=== PATIENT | female | born 1935 | race Caucasian/White ===

== ENCOUNTER 2019-08-05 08:47 | Inpatient (IN) ==
[2019-08-05] MEDS ORDERED: ONDANSETRON INJ 2 MG/ML 2 ML VIAL IV STA (10:01)
[2019-08-05] MEDS ORDERED: LIDO/EPINEPHRINE/SOD BICARB 20 ML VIAL INFIL ONE (10:14)
[2019-08-05] MEDS ORDERED: SODIUM CHLORIDE 0.9% 500 ML IV SCH (10:15)
[2019-08-05 10:23] LABS: Basophils # (auto) 0.02 K/uL (0-0.2); Basophils % (auto) 0.2 %; Eosinophils # (auto) 0.01 K/uL (0-0.5); Eosinophils % (auto) 0.1 %; Hematocrit (blood only) 26.9 % (37-47); Hemoglobin 9.3 g/dL (12.0-16.0); Immature Granulocytes # (auto) 0.03 K/uL (0.00-0.02); Immature Granulocytes % (auto) 0.3 %; Lymphocytes # (auto) 1.14 K/uL (1.2-3.4); Lymphocytes % (auto) 10.2 %; Mean Corpuscular Hemoglobin 31.5 pg (25-34); Mean Corpuscular Hgb Conc 34.6 g/dL (32-36); Mean Corpuscular Volume 91.2 fL (80-100); Mean Platelet Volume 9.8 fL (7.4-10.4); Monocytes # (auto) 0.51 K/uL (0.11-0.59); Monocytes % (auto) 4.6 %; Neutrophils # (auto) 9.45 K/uL (1.4-6.5); Neutrophils % (auto) 84.6 %; Platelet Count 211 K/uL (130-400); RDW Coefficient of Variation 14.3 % (11.5-14.5); RDW Standard Deviation 47.7 fL (36.4-46.3); Red Blood Count 2.95 M/uL (4.2-5.4); White Blood Count 11.16 K/uL (4.8-10.8)
[2019-08-05 10:33] LABS: INR 1.1 (0.9-1.1); Prothrombin Time 11.4 Seconds (9.0-12.0)
[2019-08-05 10:41] LABS: Albumin Level 2.5 gm/dl (3.4-5.0); BUN Creatinine Ratio 14.8 (10-20); Calcium 8.3 mg/dl (8.5-10.1); Creatinine Clr Calc Pharmacy 28.4 ml/min; Est GFR (African American) 37.6; Est GFR (Non-African American) 32.5; Potassium 4.7 mmol/L (3.5-5.1)
[2019-08-05 10:57] LABS: Albumin Globulin Ratio 0.7 (0.9-2); Bilirubin,Total 0.2 mg/dl (0.2-1); Globulin 3.5 gm/dl (2.5-4.0); Thyroid Stimulating Hormone 8.72 uIu/ml (0.300-4.500); Troponin I 0.103 ng/ml (0-0.045)
--- NOTE | 2019-08-05 11:01 | CT Scan Report ---
CT OF THE HEAD WITHOUT CONTRAST CLINICAL HISTORY: fall, headache COMPARISON STUDY: No previous studies for comparison. CT DOSE: 998.18 mGy.cm TECHNIQUE: Helical axial images of the head were obtained without IV contrast. Automated exposure con trol was utilized for the study. A dose lowering technique was utilized adhering to the principles o f ALARA. FINDINGS: No acute intracranial hemorrhage, midline shift or mass effect is present. The ventricular system is unremarkable. The basilar cisterns are patent. Matter hypodensity suggests small vessel dis ease. No extra-axial collections are present. There are no findings to suggest acute dural sinus thro mbosis or acute territorial infarct. No significant calvarial abnormalities are present. Visualized p ortions of the sinuses and mastoid air cells are clear. IMPRESSION: 1. No acute intracranial findings. 2. No calvarial fracture. ACT 112: Negative or not required by law. Electronically signed by: Wicho Andrade M.D. 08/05/2019 11:00 AM
[2019-08-05 11:11] LABS: T4 Free Thyroxine 1.22 ng/dl (0.8-1.6)
--- NOTE | 2019-08-05 11:24 | XRay Report ---
XR chest 1V portable HISTORY: 84 years-old Female weakness acute weakness COMPARISON: None TECHNIQUE: Portable AP view of the chest FINDINGS: Cardiac silhouette is upper limits of normal in size. Calcified plaque of the thoracic aorta. Ill-def ined opacity of the right lung apex medially. Mild pleural thickening of the lung apices which are pa rtially obscured by the patient's chin. No pneumothorax, pleural effusion, airspace consolidation or overt pulmonary edema. Degenerative changes of the shoulders and spine. Bones appear grossly intact. IMPRESSION: 1. No acute process. 2. Indeterminate ill-defined opacity of the medial right lung apex, possibly artifactual with summati on density. This could be correlated with follow-up PA and lateral views of the chest. ACT 112: Negative or not required by law. The above report was generated using voice recognition software. It may contain grammatical, syntax o r spelling errors. Electronically signed by: Dwayne Anguiano M.D. 08/05/2019 11:22 AM
[2019-08-05] MEDS ORDERED: ACETAMINOPHEN 500 MG TAB PO STA (11:28)
[2019-08-05] MEDS ORDERED: ONDANSETRON 4 MG OD TAB PO STA (11:57)
--- NOTE | 2019-08-05 11:57 | History & Physical Report ---
Date of Service August 05, 2019 Assessment & Plan (1) Traumatic open wound of left lower lend to fall. s/p modified suture repair in ER by ER provider. Will have wound care nurse consult. In meantime - cont current dressings (vaseline guaze or adaptic followed by kerlix dressing). It is uncertain what she cut the leg on at her home - thus, will give TDaP booster (adacel) x 1. For pain relief -- tylenol prn, tramadol prn. (2) Fall: Patient does not remember the event and cannot provide historical information. Uncertain if the fall was precipitated by dizziness or arrhythmia vs a simple, accidental fall. She is volume depleted so she could have had orthostasis. No evidence of rhabdomyolysis fortunately. In light of PAF history will place on telemetry. Check echo to r/o valvular heart disease as cause (there is an echo from [facility] scanned to chart from 2019 but very difficult to read). PT, OT evals. B12 level was normal in 2019. Patient with mild hip pain - check x-rays, r/o fracture. (3) Hyponatremia: Patient appears volume depleted. NS x 2 liters then saline lock. Repeat BMP am. (4) Hypertension: Hold lasix. Hold ARB due to KATY and low-normal BP. Cont metoprolol but reduce dose to 25mg daily. (5) Paroxysmal atrial fibrillation: Noted. Patient is in NSR upon presentation. Takes eliquis for anticoagulation and is on beta ramez. Hold eliquis given the epistaxis yesterday as well as significant bleeding leading to acute blood loss anemia. Resume when safe to do so. For now - cut dose of metoprolol as noted above. Place on tele. (6) Chronic anticoagulation: eliquis for PAF. see discussion above. (7) Acute kidney injury: Likely 2nd to dehydration and acute blood loss anemia. Hydrate, repeat BMP in am. Hold ARB and lasix. (8) Traumatic open wound of right lower leg: Occurred 2-3 weeks ago. Is being followed by wound care center. Consult wound care nurse. Add vit C/zinc to assist with wound healing. (9) Elevated troponin: Doubt ACS. Likely myocardial demand ischemia in setting of fall, bleeding, etc. Obtain echo to be complete. Serial enzymes. (10) Acute blood loss anemia: Hemoglobin was 11.6 in 02/07. I don't have a more recent Hb value. [id number] I suspect she has 1-2 gm drop with her epistaxis and the bleeding from her left leg wound. Repeat CBC am. May need iron at discharge. (11) Elevated TSH: mildly elevated TSH with preserved FT4. Could consider replacement but will defer to PCP shortly after discharge. (12) DVT prophylaxis: hold eliquis for tonight (see discussion above) resume when H/H found to be stable and no evidence of any bleeding from any location daughter updated extensively at bedside History of Present Illness Chief Complaint: fall Primary Care Provider: Napoleon Lindsey MD 84yo female with h/o a.fib on eliquis who presents after a fall at her home in [place]. The patient's daughter was at bedside during my ER assessment and provided much of the historical information. Patient herself does not remember the fall. She couldn't give details surrounding the fall. The patient's daughter states they found her about 745am today in her bathroom. The family thinks she may have fallen about 2am. Family found blood on the floor in the kitchen as well as on her chair in the living room. Thus, they aren't certain where the actual fall occurred. There was a large wound to the left leg from this injury. Daughter reports that Mrs Engel was evaluated in the ER last night because of epistaxis. The nosebleed stopped without intervention. They did not get home until midnight last evening. Daughter mentioned that on most mornings her mom feels "foggy." Receives home health for a leg wound on the right leg. That has been present for 2 weeks. Daughter believes it was from scratching the skin. Followed in wound center for this right leg wound Over the last few days she has felt well except for the nosebleed. No loss of taste/smell, no fevers, no cough or dyspnea, no abdominal pain/nausea/emesis/diarrhea. No dysuria or foul-smelling urine. Allergies Allergy/AdvReac Type Severity Reaction Status Date / Time lisinopril AdvReac Mild Cough Verified 08/05/19 09:39 Home Medications Home Medications Medication Instructions Recorded Confirmed Type apixaban 5 mg tablet 5 mg PO BID 10/31/18 08/05/19 History aspirin 81 mg tablet,delayed 81 mg PO DAILY@1200 10/31/18 08/05/19 History release atorvastatin 20 mg tablet 20 mg PO HS 10/31/18 08/05/19 History cholecalciferol (vitamin D3) 125 5,000 units PO DAILY@1200 04/29/19 08/05/19 History mcg (5,000 unit) capsule coenzyme Q10 400 mg capsule 400 mg PO DAILY@1200 04/29/19 08/05/19 History multivitamin 1 tab PO DAILY@1200 04/29/19 08/05/19 History Wheelchair (Manual or Powered) #1 ea 05/01/19 Rx Wheelchair (Manual or Powered) #1 ea 05/05/19 05/05/19 Rx Wheelchair (Manual or Powered) #1 ea 05/06/19 Rx omega-3 fatty acids [Fish Oil 2,000 mg PO DAILY@1200 06/26/19 08/05/19 History Concentrate] famotidine [Pepcid] 40 mg PO QA 07/21/19 08/05/19 History losartan 50 mg PO HS 08/04/19 08/05/19 History furosemide [Lasix] 20 mg PO TID PRN 08/05/19 08/05/19 History metoprolol succinate 50 mg PO QAM 08/05/19 08/05/19 History tramadol 50 mg PO DAILY PRN 08/05/19 08/05/19 History Past Med/Surg History Medical History Atrial fibrillation Chronic anticoagulation Dyslipidemia Gait instability GERD (gastroesophageal reflux disease) Hypertension Mitral regurgitation Paroxysmal atrial fibrillation Surgical History H/O: hysterectomy Family History Mother Heart disease congestive heart failure Father Black lung disease Social History Preferred Language: Spanish Communication Ability: Effective Beliefs That Will Affect Care: None marital status: / Current Living Situation: Alone 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 occupational status: 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 Other Information That Helps Us Care for You: No other: 4 children; lives in [place] until 2019 Feels Safe at Home: Yes Safety Concerns: Feels Safe At This Time Smoking Status: Never smoker Hx Alcohol Use: No Hx Substance Use: No Review of Systems Constitutional: no fever, no chills, no anorexia and no weight loss Eyes: no worsening vision Ear, Nose, Mouth, Throat: no nasal congestion, no sore throat and no dysphagia Respiratory: no cough and no dyspnea Cardiovascular: no chest pain Gastrointestinal: + nausea (just in ER); no abdominal pain, no vomiting, no diarrhea/loose stools and no blood in stools Genitourinary: no dysuria Musculoskeletal: + joint pain (hips) Integumentary: + non-healing lesions Neurologic: no localized weakness and no loss of sensation Psychiatric: no depression and no anxiety Endocrine: no diabetes Hematologic / Lymphatic: + easy bruising Physical Exam Constitutional: + frail appearing; no acute distress and no altered mental status (but was sleepy ) Eyes: PERRL ENMT: Ears: no TM abnormality Nose: + turbinate abnormality (dried blood right nare) Mouth: + dry oral mucous membranes Neck: trachea midline, no thyromegaly Respiratory: normal respiratory effort, lungs clear to auscultation Cardiovascular: Rate/Rhythm: regular rate and regular rhythm Heart Sounds: normal S1, normal S2 and + murmur (2/6 JAMAL RUSB and apex ) Vessels: posterior tibial pulses present and dorsalis pedis pulses present; no JVD Extremities: no edema Gastrointestinal (Abdomen): normal bowel sounds, soft, nontender, no hepatosplenomegaly Musculoskeletal: passive ROM of both hips causes pain in left hip region; no deformity of either leg; dressings in place to b/l LEs Skin: dried blood on bottoms of feet; b/l shins - mild venous stasis changes; skin is very thin. Well-healed ulceration, distal medial right mathews, with no surrounding cellulitis or drainage. left distal medial amthews -- large open laceration, ellipse in shape and vertical in orientation, about 2 to 2.5 inches in length; 2 sutures present at top-portion of wound and 2 sutures present at bottom. There is 2-3mm of opening between the wound edges. There is surrounding bruising and evidence of significant trauma. Neurologic: deep tendon reflexes 2+ bilaterally and moves all extremities; no focal motor deficits Psychiatric: Orientation: alert (but sleepy at times ), oriented to person and oriented to place Lymphatic: no cervical lymphadenopathy Results & Data Results & Data ([facility]) Vital Signs (Past 12 Hours) Vital Signs Temp Pulse Pulse Resp BP BP Pulse Ox 08/05/19 11:03 80 18 115/66 100 08/05/19 10:13 77 16 117/54 L 98 08/05/19 10:12 98 08/05/19 09:08 36.2 C L 74 18 122/61 96 Laboratory Results Laboratory Results - last 24 hr 08/05/19 08/05/19 08/05/19 10:10 10:10 10:10 WBC 11.16 H RBC 2.95 L Hgb 9.3 L Hct 26.9 L MCV 91.2 MCH 31.5 MCHC 34.6 RDW Std Deviation 47.7 H RDW Coeff of Marcel 14.3 Plt Count 211 MPV 9.8 Immature Gran % (Auto) 0.3 Neut % (Auto) 84.6 Lymph % (Auto) 10.2 [place] % (Auto) 4.6 Eos % (Auto) 0.1 Baso % (Auto) 0.2 Immature Gran # (Auto) 0.03 H Neut # (Auto) 9.45 H Lymph # (Auto) 1.14 L [place] # (Auto) 0.51 Eos # (Auto) 0.01 Baso # (Auto) 0.02 PT 11.4 INR 1.1 Sodium 131 L Potassium 4.7 Chloride 98 Carbon Dioxide 23 Anion Gap 10.0 BUN 22 H Creatinine 1.46 H Est Cr Clr Drug Dosing 28.4 Est GFR ( Amer) 37.6 Est GFR (Non-Af Amer) 32.5 BUN/Creatinine Ratio 14.8 Glucose 183 H Calcium 8.3 L Magnesium Total Bilirubin 0.2 AST 16 ALT 16 Alkaline Phosphatase 144 H Total Creatine Kinase 62 Troponin I 0.103 H* Total Protein 6.0 L Albumin 2.5 L Globulin 3.5 Albumin/Globulin Ratio 0.7 L TSH 8.720 H Free T4 1.22 08/05/19 08/05/19 10:10 16:01 WBC RBC Hgb Hct MCV MCH MCHC RDW Std Deviation RDW Coeff of Marcel Plt Count MPV Immature Gran % (Auto) Neut % (Auto) Lymph % (Auto) [place] % (Auto) Eos % (Auto) Baso % (Auto) Immature Gran # (Auto) Neut # (Auto) Lymph # (Auto) [place] # (Auto) Eos # (Auto) Baso # (Auto) PT INR Sodium Potassium Chloride Carbon Dioxide Anion Gap BUN Creatinine Est Cr Clr Drug Dosing Est GFR ( Amer) Est GFR (Non-Af Amer) BUN/Creatinine Ratio Glucose Calcium Magnesium 2.0 Total Bilirubin AST ALT Alkaline Phosphatase Total Creatine Kinase Troponin I 0.146 H* Total Protein Albumin Globulin Albumin/Globulin Ratio TSH Free T4 Diagnostic Findings EKG - my reading - NSR, no ST changes cxr - ?RUL infiltrate vs summation CT head - no ICH, no acute process Code Status & VTE Plan Code Status DNR/DNI VTE Prophylaxis Plan VTE Prophylaxis will be ordered: Yes PG Care Time/CCT Total # of Minutes Spent Total Time Spent with Patient: Total time spent is greater than 50% in coordination of care (as documented) at patient's floor/unit and/or counseling patient: Coding Level of Care Code 27221 Initial Inpt Care Lvl 3 Diagnoses Traumatic open wound of left lower leg S81.802A Encounter type: initial encounter Fall W19.XXXA Encounter type: initial encounter Hyponatremia E87.1 Hypertension I10 Hypertension type: essential hypertension Paroxysmal atrial fibrillation I48.0 Chronic anticoagulation Z79.01 Acute kidney injury N17.9 Traumatic open wound of right lower leg S81.801S Encounter type: sequela Elevated troponin R79.89 Acute blood loss anemia D62 Elevated TSH R79.89 DVT prophylaxis Z29.9 (1) Traumatic open wound of right lower leg Encounter type: sequela Qualified Code(s): S81.801S - Unspecified open wound, right lower leg, sequela (2) Traumatic open wound of left lower leg Encounter type: initial encounter Qualified Code(s): S81.802A - Unspecified open wound, left lower leg, initial encounter (3) Hypertension Hypertension type: essential hypertension Qualified Code(s): I10 - Essential (primary) hypertension (4) Fall Encounter type: initial encounter Qualified Code(s): W19.XXXA - Unspecified fall, initial encounter
[2019-08-05] MEDS ORDERED: DIPHTHERIA/TETANUS/PERTUSSIS 0.5 ML SYR/VIAL IM ONE (12:33)
--- NOTE | 2019-08-05 12:37 | Electrocardiogram Report ---
Test Reason : Blood Pressure : / mmHG Vent. Rate : 072 BPM Atrial Rate : 072 BPM P-R Int : 158 ms QRS Dur : 084 ms QT Int : 402 ms P-R-T Axes : 039 009 054 degrees QTc Int : 440 ms Sinus rhythm with marked sinus arrhythmia Nonspecific ST abnormality Abnormal ECG No previous ECGs available Confirmed by Carlos Collier ([id number]) on 08/05/2019 12:36:45 PM Referred By: REFERRED SELF Confirmed By:Alvaro Collier
--- NOTE | 2019-08-05 13:03 | XRay Report ---
PELVIS 2 VIEWS CLINICAL HISTORY: Fall. Bilateral hip pain. FINDINGS: AP and frog-leg views of the pelvis are obtained. No prior studies are available for compar isma at the time of dictation. The skeletal structures are osteopenic. There is no radiographic evide nce of fracture involving the hips or bony pelvis. Moderate degenerative joint space narrowing is pre sent in the hips. Degenerative sclerosis is noted in the sacroiliac joints. Mild lumbosacral spondylo sis is partially visualized. Phleboliths are observed in the pelvis. There is no bowel obstruction. T he overlying soft tissues are normal as imaged. IMPRESSION: No acute bony abnormality is identified. Electronically signed by: Bry Foster M.D. 08/05/2019 1:02 PM
[2019-08-05] MEDS ORDERED: ONDANSETRON INJ 2 MG/ML 2 ML VIAL IV PRN (14:15)
[2019-08-05] MEDS: SODIUM CHLORIDE 0.9% 1000ML 1,000 ML IV SCH (14:50)
--- NOTE | 2019-08-05 15:41 | Emergency Department Note ---
History of Present Illness General Chief complaint: Fall Stated complaint: GLF 2AM Leg Lac Time Seen by Provider: 08/05/19 09:16 Source: patient History of Present Illness Provider complaint: Fall Maximum Pain Intensity: 8 This is a 84-year-old female who presents to the ED with a chief complaint of a fall. She was seen here last night for nosebleed. The patient fell around 2 AM and was on the floor until about 8 AM when the family found her. She states that she feels groggy and has a slight headache and a little nausea. She has so me generalized fatigue and weakness. She is on Eliquis for A. fib. The patient has no other additional complaints at this time. Denies any chest pains or abdominal pains. No vomiting or fevers. She does complain of a wound to the left leg from her injury. Her family states that there was a lot of blood on the floor. Home Medications Home Medications Medication Instructions Recorded Confirmed Type apixaban 5 mg tablet 5 mg PO BID 10/31/18 08/05/19 History aspirin 81 mg tablet,delayed 81 mg PO DAILY@119910/31/18 08/05/19 History release atorvastatin 20 mg tablet 20 mg PO HS 10/31/18 08/05/19 History cholecalciferol (vitamin D3) 125 5,000 units PO DAILY@119904/29/19 08/05/19 History mcg (5,000 unit) capsule coenzyme Q10 400 mg capsule 400 mg PO DAILY@119904/29/19 08/05/19 History multivitamin 1 tab PO DAILY@119904/29/19 08/05/19 History Wheelchair (Manual or Powered) #1 ea 05/01/19 Rx Wheelchair (Manual or Powered) #1 ea 05/05/19 05/05/19 Rx Wheelchair (Manual or Powered) #1 ea 05/06/19 Rx omega-3 fatty acids [Fish Oil 2,000 mg PO DAILY@119906/26/19 08/05/19 History Concentrate] famotidine [Pepcid] 40 mg PO QAM 07/21/19 08/05/19 History losartan 50 mg PO HS 08/04/19 08/05/19 History furosemide [Lasix] 20 mg PO TID PRN 08/05/19 08/05/19 History metoprolol succinate 50 mg PO QAM 08/05/19 08/05/19 History tramadol 50 mg PO DAILY PRN 08/05/19 08/05/19 History Allergies Allergy/AdvReac Type Severity Reaction Status Date / Time lisinopril AdvReac Mild Cough Verified 08/05/19 09:39 Past Med/Surg History Medical History Atrial fibrillation Chronic anticoagulation Dyslipidemia Gait instability GERD (gastroesophageal reflux disease) Hypertension Mitral regurgitation Paroxysmal atrial fibrillation Surgical History H/O: hysterectomy Family History Mother Heart disease congestive heart failure Father Black lung disease Social History Preferred Language: Scottish Communication Ability: Effective Beliefs That Will Affect Care: None marital status: / Current Living Situation: Alone 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 occupational status: 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 Other Information That Helps Us Care for You: No other: 4 children; lives in [place] until 2019 Feels Safe at Home: Yes Safety Concerns: Feels Safe At This Time Smoking Status: Never smoker Hx Alcohol Use: No Hx Substance Use: No Review of Systems A total of 10 systems reviewed and were otherwise negative Physical Exam Vital Signs Vital Signs - 24 hr 08/05/19 09:08 08/05/19 10:12 08/05/19 10:13 Temperature 36.2 C L Temperature Source Rectal Pulse Rate 74 Pulse Rate [Left Finger] 77 Pulse Rate from SpO2 Sensor Respiratory Rate 18 16 Blood Pressure 122/61 Blood Pressure [Left Arm] 117/54 L Blood Pressure Mean 81 Blood Pressure Mean [Left Arm] 75 Pulse Oximetry 96 98 98 Oxygen Delivery Method Room Air Room Air Room Air Sepsis Recent Fever Within 48 Hours No Sepsis New/Unexplained Change in Mental Status No Sepsis Action Taken by Nursing No Action Required 08/05/19 11:03 08/05/19 11:30 08/05/19 12:01 Temperature Temperature Source Pulse Rate 77 75 74 Pulse Rate [Left Finger] 80 Pulse Rate from SpO2 Sensor 78 76 72 Respiratory Rate 18 20 22 Blood Pressure 115/66 101/60 99/53 L Blood Pressure [Left Arm] 115/66 Blood Pressure Mean 93 82 79 Blood Pressure Mean [Left Arm] 82 Pulse Oximetry 100 98 98 Oxygen Delivery Method Room Air Sepsis Recent Fever Within 48 Hours Sepsis New/Unexplained Change in Mental Status Sepsis Action Taken by Nursing 08/05/19 12:30 Temperature Temperature Source Pulse Rate 85 Pulse Rate [Left Finger] Pulse Rate from SpO2 Sensor Respiratory Rate 31 H Blood Pressure 120/66 Blood Pressure [Left Arm] Blood Pressure Mean 89 Blood Pressure Mean [Left Arm] Pulse Oximetry Oxygen Delivery Method Sepsis Recent Fever Within 48 Hours Sepsis New/Unexplained Change in Mental Status Sepsis Action Taken by Nursing CONSTITUTIONAL/VITAL SIGNS: Reviewed / noted above. GENERAL: Non-toxic in appearance. INTEGUMENTARY: Warm, dry, and [place]. HEAD: Normocephalic. EYES: without scleral icterus or trauma. ENT/OROPHARYNX: clear and moist. LYMPHADENOPATHY/NECK: Is supple without lymphadenopathy or meningismus. RESPIRATORY: Lungs clear and equal. CARDIOVASCULAR: Regular rate and rhythm. GI/ABDOMEN: Soft and nontender. No organomegaly or pulsatile mass. No rebound or guarding. Normal bowel sounds. EXTREMITIES: Warm and well perfused. 16 cm laceration the left calf region that is flap-like skin tear. Please see Nallely Cuadra's, physician operator assistant i cementing note for details on the repair. BACK: No CVA tenderness. NEUROLOGICAL: Intact without focal deficits. PSYCHIATRIC: normal affect. MUSCULOSKELETAL: Normally developed with good muscle tone. TRIAGE NURSING DOCUMENTATION REVIEWED. Course Administered Medications Sodium Chloride (Nss 1000ml) 1,000 mls @ 75 mls/hr IV .[id number] [facility] Stop: 08/06/19 15:12 Last Admin: 08/05/19 14:50 Dose: 75 mls/hr Documented by: [id number] Discontinued Medications Acetaminophen (Tylenol) 500 mg PO NOW STA Stop: 08/05/19 11:29 Last Admin: 08/05/19 11:59 Dose: 500 mg Documented by: [id number] Diphtheria/Pertussis/Tetanus Vacc (Adacel) 0.5 ml IM .ONCE ONE Stop: 08/05/19 12:34 Last Admin: 08/05/19 13:37 Dose: 0.5 ml Documented by: [id number] Sodium Chloride (Nss) 500 mls @ 999 mls/hr IV .Q31M [facility] Stop: 08/05/19 10:45 Last Infusion: 08/05/19 10:51 Dose: 0 mls/hr Documented by: [id number] Admin: 08/05/19 10:19 Dose: 999 mls/hr Documented by: [id number] Lidocaine/Epinephrine (Buffered Xylocaine/Epinephrine 1%) 20 ml INFIL NOW ONE Stop: 08/05/19 10:15 Last Admin: 08/05/19 10:20 Dose: 20 ml Documented by: [id number] Ondansetron HCl (Zofran) 4 mg IV NOW STA Stop: 08/05/19 10:02 Last Admin: 08/05/19 10:19 Dose: 4 mg Documented by: [id number] Ondansetron HCl (Zofran Odt) 4 mg PO NOW STA Stop: 08/05/19 11:58 Last Admin: 08/05/19 12:05 Dose: 4 mg Documented by: [id number] Medical Decision Making Medical Records Attestation: I reviewed the patient's medical records. Home Medications Current Medication List: was personally reviewed by me Laboratory Data Attestation: I reviewed the patient's lab results. Result diagrams: 08/05/19 10:10 08/05/19 10:10 Lab Results 08/05/19 08/05/19 08/05/19 Range/Units 10:10 10:10 10:10 WBC 11.16 H (4.8-10.8) K/uL RBC 2.95 L (4.2-5.4) M/uL Hgb 9.3 L (12.0-16.0) g/dL Hct 26.9 L (37-47) % MCV 91.2 (80-100) fL MCH 31.5 (25-34) pg MCHC 34.6 (32-36) g/dL RDW Std Deviation 47.7 H (36.4-46.3) fL RDW Coeff of Marcel 14.3 (11.5-14.5) % Plt Count 211 (130-400) K/uL MPV 9.8 (7.4-10.4) fL Immature Gran % (Auto) 0.3 % Neut % (Auto) 84.6 % Lymph % (Auto) 10.2 % Sabine % (Auto) 4.6 % Eos % (Auto) 0.1 % Baso % (Auto) 0.2 % Immature Gran # (Auto) 0.03 H (0.00-0.02) K/uL Neut # (Auto) 9.45 H (1.4-6.5) K/uL Lymph # (Auto) 1.14 L (1.2-3.4) K/uL Sabine # (Auto) 0.51 (0.11-0.59) K/uL Eos # (Auto) 0.01 (0-0.5) K/uL Baso # (Auto) 0.02 (0-0.2) K/uL PT 11.4 (9.0-12.0) Seconds INR 1.1 (0.9-1.1) Sodium 131 L (136-145) mmol/L Potassium 4.7 (3.5-5.1) mmol/L Chloride 98 (98-107) mmol/L Carbon Dioxide 23 (21-32) mmol/L Anion Gap 10.0 (3-11) BUN 22 H (7-18) mg/dl Creatinine 1.46 H (0.6-1.2) mg/dl Est Cr Clr Drug Dosing 28.4 ml/min Est GFR ( Amer) 37.6 Est GFR (Non-Af Amer) 32.5 BUN/Creatinine Ratio 14.8 (10-20) Glucose 183 H (70-99) mg/dl Calcium 8.3 L (8.5-10.1) mg/dl Magnesium (1.8-2.4) mg/dl Total Bilirubin 0.2 (0.2-1) mg/dl AST 16 (15-37) U/L ALT 16 (12-78) U/L Alkaline Phosphatase 144 H (45-117) U/L Total Creatine Kinase 62 (26-192) U/L Troponin I 0.103 H* (0-0.045) ng/ml Total Protein 6.0 L (6.4-8.2) gm/dl Albumin 2.5 L (3.4-5.0) gm/dl Globulin 3.5 (2.5-4.0) gm/dl Albumin/Globulin Ratio 0.7 L (0.9-2) TSH 8.720 H (0.300-4.500) uIu/ml Free T4 1.22 (0.8-1.6) ng/dl 08/05/19 Range/Units 10:10 WBC (4.8-10.8) K/uL RBC (4.2-5.4) M/uL Hgb (12.0-16.0) g/dL Hct (37-47) % MCV (80-100) fL MCH (25-34) pg MCHC (32-36) g/dL RDW Std Deviation (36.4-46.3) fL RDW Coeff of Marcel (11.5-14.5) % Plt Count (130-400) K/uL MPV (7.4-10.4) fL Immature Gran % (Auto) % Neut % (Auto) % Lymph % (Auto) % Sabine % (Auto) % Eos % (Auto) % Baso % (Auto) % Immature Gran # (Auto) (0.00-0.02) K/uL Neut # (Auto) (1.4-6.5) K/uL Lymph # (Auto) (1.2-3.4) K/uL Sabine # (Auto) (0.11-0.59) K/uL Eos # (Auto) (0-0.5) K/uL Baso # (Auto) (0-0.2) K/uL PT (9.0-12.0) Seconds INR (0.9-1.1) Sodium (136-145) mmol/L Potassium (3.5-5.1) mmol/L Chloride (98-107) mmol/L Carbon Dioxide (21-32) mmol/L Anion Gap (3-11) BUN (7-18) mg/dl Creatinine (0.6-1.2) mg/dl Est Cr Clr Drug Dosing ml/min Est GFR ( Amer) Est GFR (Non-Af Amer) BUN/Creatinine Ratio (10-20) Glucose (70-99) mg/dl Calcium (8.5-10.1) mg/dl Magnesium 2.0 (1.8-2.4) mg/dl Total Bilirubin (0.2-1) mg/dl AST (15-37) U/L ALT (12-78) U/L Alkaline Phosphatase (45-117) U/L Total Creatine Kinase (26-192) U/L Troponin I (0-0.045) ng/ml Total Protein (6.4-8.2) gm/dl Albumin (3.4-5.0) gm/dl Globulin (2.5-4.0) gm/dl Albumin/Globulin Ratio (0.9-2) TSH (0.300-4.500) uIu/ml Free T4 (0.8-1.6) ng/dl Imaging Data Radiologist's Impression: Chest x-ray: IMPRESSION: 1. No acute process. 2. Indeterminate ill-defined opacity of the medial right lung apex, possibly artifactual with summation density. This could be correlated with follow-up PA and lateral views of the chest. CT scan of the brain: IMPRESSION: 1. No acute intracranial findings. 2. No calvarial fracture. X-ray of the pelvis/hip IMPRESSION: No acute bony abnormality is identified. ECG Data Attestation: I personally reviewed and interpreted this ECG as follows: Indication: + weakness Rate (beats per minute): 72 Rhythm: + sinus rhythm ECG Intervals/blocks: + Normal QT-c ECG ST segments: no ST elevation ECG Findings: no PVCs Blood Pressure Blood Pressure Findings: Normal blood pressure Head Trauma GCS Score: 15 MDM Narrative The patient presents as above after a fall. She was on the ground for possibly 6 hours. Her total CK was normal. She did suffer a large laceration/skin tear to the left calf region that was approximated as best possible by Nallely Chau PA-C. The patient exam was otherwise unremarkable for any serious injury. A CT scan of the brain did not show acute process. Twelve-lead EKG shows a normal sinus rhythm. Troponin was slightly elevated. CBC and chemistry panel was unremarkable. The patient and family were told the results of the test. She will be seen by the hospitalist for further inpatient evaluation and care for her elevated troponin. She is currently not having any chest pain and her EKG did not show any acute ischemic changes. Other imaging studies are noted above. Chest x-ray did not show acute process. X-ray of the pelvis/hip was unremarkable. Impression & Plan Fall, Noninfected skin tear of left leg, Generalized weakness, Elevated t roponin Discharge Plan Visit Data *Final* Discharge Date/Time: 08/05/19 13:46 Chief Complaint: Fall Stated Complaint: GLF 2AM Leg Lac ED Provider: Amrik Recinos Discharge Problem: Fall, Noninfected skin tear of left leg, Generalized weakness, Elevated troponin Patient Disposition: Admitted As Inpatient Discharge Instructions Interventions: ED Discharge Assessment Last Done: 06/15/20 13:46 Discharge Problem: Fall Qualifiers: Encounter type: initial encounter Qualified Code(s): W19.XXXA - Unspecified fall, initial encounter Noninfected skin tear of left leg Qualifiers: Encounter type: initial encounter Qualified Code(s): S81.812A - Laceration without foreign body, left lower leg, initial encounter
[2019-08-05] MEDS: ACETAMINOPHEN 325 MG TAB PO PRN (16:45)
[2019-08-05] MEDS: ATORVASTATIN 20 MG TAB PO SCH (20:23)
--- NOTE | 2019-08-05 20:24 | Emergency Department Note ---
ED Visit Note EMERGENCY DEPARTMENT PROCEDURE NOTE: I was asked by Dr. Recinos to evaluate and treat the large skin tear on the left medial calf of this 84-year-old female patient. Please refer to their dictation for the complete history, physical exam, and ED course. EMERGENCY DEPARTMENT COURSE: The wound cleansed with saline, and anesthetized with 20 cc of 1% buffered lidocaine with epinephrine to facilitate exam and care. The patient has an L-shaped skin tear that measured 16 cm in length. There was significant swelling and retraction of the flap, and despite evacuation of the hematoma, the skin could not be reapproximated. The flap was very thin and friable. I did attempt to place sutures to reapproximate the skin flap, I was only able to get 4, 4-0 nylon sutures in the more proximal and distal portion of the wound, the distance to overcome in the middle was too great and sutures were pulling out of the flap. The area is not amenable to Dermabond or Steri-Strips. The area was then cleansed again with saline solution and dressed with Adaptic, 4 x 4's, ABD and a light dressing. Patient is established with the wound care center, she will be seeing them later this week. They can address the new left lower extremity skin tear at that time. . : Fall Qualifiers: Encounter type: initial encounter Qualified Code(s): W19.XXXA - Unspecified fall, initial encounter Noninfected skin tear of left leg Qualifiers: Encounter type: initial encounter Qualified Code(s): S81.812A - Laceration without foreign body, left lower leg, initial encounter
[2019-08-06] MEDS: SODIUM CHLORIDE 0.9% 1000ML 1,000 ML IV SCH (04:17)
[2019-08-06] MEDS: ACETAMINOPHEN 325 MG TAB PO PRN ×2 (07:07→23:33)
[2019-08-06 08:50] LABS: Hematocrit (blood only) 20.5 % (37-47); Hemoglobin 7.1 g/dL (12.0-16.0); Mean Corpuscular Hgb Conc 34.6 g/dL (32-36); Mean Corpuscular Volume 89.5 fL (80-100); Mean Platelet Volume 9.1 fL (7.4-10.4); Platelet Count 176 K/uL (130-400); RDW Coefficient of Variation 14.2 % (11.5-14.5); RDW Standard Deviation 47.1 fL (36.4-46.3); Red Blood Count 2.29 M/uL (4.2-5.4); White Blood Count 9.03 K/uL (4.8-10.8)
[2019-08-06] MEDS: FAMOTIDINE 40 MG TABLET PO SCH (08:52)
[2019-08-06] MEDS: ASCORBIC ACID 500 MG TAB PO SCH (08:52)
[2019-08-06] MEDS: ZINC SULFATE 220 MG CAPSULE PO SCH (08:52)
[2019-08-06] MEDS: METOPROLOL SUCC 25MG EXT REL TAB PO SCH (08:52)
[2019-08-06 08:54] LABS: BUN Creatinine Ratio 16.3 (10-20); Calcium 7.9 mg/dl (8.5-10.1); Creatinine Clr Calc Pharmacy 24.1 ml/min; Est GFR (African American) 30.9; Est GFR (Non-African American) 26.6; Potassium 4.2 mmol/L (3.5-5.1)
--- NOTE | 2019-08-06 11:28 | XCELERA ---
[id number]
[2019-08-06] MEDS ORDERED: SODIUM CHLORIDE 0.9% 250 ML IV PRN (11:29)
--- NOTE | 2019-08-06 11:32 | Hospitalist Progress Note ---
Date of Service August 06, 2019 Assessment & Plan (1) Traumatic open wound of left lower lend to fall. s/p modified suture repair in ER by ER provider. Patient appears to be orthostatic. Syncope likely caused by anemia. Will transfuse patient with 1 PRBC and monitor. Appreciate wound care. For pain relief -- tylenol prn, tramadol prn. (2) Fall: Fall appears to be secondary to snemia. In light of PAF history will place on telemetry. Check echo to r/o valvular heart disease as cause (there is an echo from [facility] scanned to chart from 2019 but very difficult to read). PT, OT evals. B12 level was normal in 2019. Patient with mild hip pain - check x-rays, r/o fracture. (3) Hyponatremia: Mildly low. (4) Hypertension: Hold lasix. Hold ARB due to KATY and low-normal BP. Cont metoprolol but reduce dose to 25mg daily. (5) Paroxysmal atrial fibrillation: Noted. Patient is in NSR upon presentation. Takes eliquis for anticoagulation and is on beta ramez. Hold eliquis given the epistaxis yesterday as well as significant bleeding leading to acute blood loss anemia. Resume when safe to do so. For now - cut dose of metoprolol as noted above. Place on tele. (6) Chronic anticoagulation: eliquis for PAF. see discussion above. (7) Acute kidney injury: Likely 2nd to dehydration and acute blood loss anemia. remains elevated at 1.72 (8) Traumatic open wound of right lower leg: Occurred 2-3 weeks ago. Is being followed by wound care center. Consult wound care nurse. Add vit C/zinc to assist with wound healing. (9) Elevated troponin: Doubt ACS. Likely myocardial demand ischemia in setting of fall, bleeding, etc. Obtain echo to be complete. Serial enzymes. (10) Acute blood loss anemia: Hemoglobin was 11.6 in 02/07. dropped to 7 will transfuse. (11) Elevated TSH: mildly elevated TSH with preserved FT4. Could consider replacement but will defer to PCP shortly after discharge. (12) DVT prophylaxis: hold eliquis for tonight (see discussion above) resume when H/H found to be stable and no evidence of any bleeding from any location daughter updated extensively over the phone. Admission and Anticipated Discharge Date Admission Date: August 05, 2019 Subjective Patient is awake alert oriented to time and place. Patient reports she was bleeding in her home, likely from her wound. 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 She called her daughter. I tried to obtain consent with the patient for blood, but she couldn't provide this with me. I obtained it with her daughter. Review of Systems Review of Systems: All systems reviewed & are unremarkable except as noted in HPI & below Physical Exam Physical Exam: Constitutional: no acute distress and no altered mental status Eyes: PERRL ENMT: Ears: no TM abnormality Mouth: no longer dry oral mucous membranes Neck: trachea midline, no thyromegaly Respiratory: normal respiratory effort, lungs clear to auscultation Cardiovascular: Rate/Rhythm: regular rate and regular rhythm Heart Sounds: normal S1, normal S2 and + murmur (2/6 JAMAL RUSB and apex ) Vessels: posterior tibial pulses present and dorsalis pedis pulses present; no JVD Extremities: no edema Gastrointestinal (Abdomen): normal bowel sounds, soft, nontender, no hepatosplenomegaly Musculoskeletal: passive ROM of both hips causes pain in left hip region; no deformity of either leg; dressings in place to b/l LEs Skin: dressing noted on left leg Neurologic: deep tendon reflexes 2+ bilaterally and moves all extremities; no focal motor deficits Psychiatric: Orientation: alert (but sleepy at times ), oriented to person and oriented to place Lymphatic: no cervical lymphadenopathy Results & Data Results & Data ([facility]) Vital Signs (Past 12 Hours) Vital Signs Temp Pulse Pulse Resp BP Pulse Ox 08/06/19 11:03 36.6 C 78 18 104/62 98 08/06/19 07:30 79 08/06/19 07:08 36.5 C 83 18 130/72 98 08/06/19 04:25 36.7 C 86 18 101/56 L 97 08/06/19 00:48 70 08/06/19 00:24 36.7 C 81 20 93/64 L 97 PG Care Time/CCT Total # of Minutes Spent Total Time Spent with Patient: Total time spent is greater than 50% in coordination of care (as documented) at patient's floor/unit and/or counseling patient: Coding Level of Care Code 90500 Subseq Hosp Care Lvl 3 Diagnoses Traumatic open wound of left lower leg S81.802A Encounter type: initial encounter Fall W19.XXXA Encounter type: initial encounter Hyponatremia E87.1 Hypertension I10 Hypertension type: essential hypertension Paroxysmal atrial fibrillation I48.0 Chronic anticoagulation Z79.01 Acute kidney injury N17.9 Traumatic open wound of right lower leg S81.801S Encounter type: sequela Elevated troponin R79.89 Acute blood loss anemia D62 Elevated TSH R79.89 DVT prophylaxis Z29.9 Time Spent (min) 45 (1) Traumatic open wound of right lower leg Encounter type: sequela Qualified Code(s): S81.801S - Unspecified open wound, right lower leg, sequela (2) Traumatic open wound of left lower leg Encounter type: initial encounter Qualified Code(s): S81.802A - Unspecified open wound, left lower leg, initial encounter (3) Hypertension Hypertension type: essential hypertension Qualified Code(s): I10 - Essential (primary) hypertension (4) Fall Encounter type: initial encounter Qualified Code(s): W19.XXXA - Unspecified fall, initial encounter
[2019-08-06] MEDS ORDERED: NON-FORMULARY MEDICATION (Coenzyme Q10 400 MG) PO SCH (12:00)
[2019-08-06 12:15] LABS: Ferritin 46.3 ng/ml (8-388)
[2019-08-06] MEDS: ASPIRIN 81 MG ECTAB PO SCH (12:36)
[2019-08-06] MEDS: OMEGA-3 (PURIFIED FISH OIL) 1 GM CAP PO SCH (12:36)
[2019-08-06] MEDS: MULTIVITAMIN TAB PO SCH (12:36)
[2019-08-06] MEDS: CHOLECALCIFEROL 1,000 UNITS 25 MCG TAB PO SCH (12:36)
[2019-08-06 17:16] LABS: Appearance Urine Clear (Clear); Bilirubin Urine Negative (Negative); Blood Urine Negative (Negative); Color Urine Yellow; Glucose Urine UA Negative (Negative); Ketones Urine Negative (Negative); Leukocyte Esterase Urine Negative (Negative); Nitrite Urine Negative (Negative); Protein Urine Negative (Negative); Specific Gravity Urine 1.013 (1.000-1.030); Urobilinogen Urine Negative (Negative)
[2019-08-06] MEDS: ATORVASTATIN 20 MG TAB PO SCH (21:22)
[2019-08-06] MEDS: TRAMADOL HCL 50 MG TABLET PO PRN (21:22)
[2019-08-06] MEDS ORDERED: MoRPHine SULFATE 2 MG/ML CARP IV STA (23:05)
[2019-08-07] MEDS: ACETAMINOPHEN 325 MG TAB PO PRN ×3 (03:23→18:11)
[2019-08-07 07:29] LABS: Basophils # (auto) 0.02 K/uL (0-0.2); Basophils % (auto) 0.3 %; Eosinophils # (auto) 0.12 K/uL (0-0.5); Eosinophils % (auto) 1.5 %; Hematocrit (blood only) 23.1 % (37-47); Immature Granulocytes # (auto) 0.01 K/uL (0.00-0.02); Immature Granulocytes % (auto) 0.1 %; Lymphocytes # (auto) 1.56 K/uL (1.2-3.4); Lymphocytes % (auto) 19.7 %; Mean Corpuscular Hemoglobin 31.3 pg (25-34); Mean Corpuscular Volume 90.2 fL (80-100); Mean Platelet Volume 9.4 fL (7.4-10.4); Monocytes # (auto) 0.86 K/uL (0.11-0.59); Monocytes % (auto) 10.9 %; Neutrophils # (auto) 5.35 K/uL (1.4-6.5); Neutrophils % (auto) 67.5 %; Platelet Count 153 K/uL (130-400); RDW Coefficient of Variation 14.2 % (11.5-14.5); Red Blood Count 2.56 M/uL (4.2-5.4); White Blood Count 7.92 K/uL (4.8-10.8)
[2019-08-07 07:46] LABS: Albumin Level 2.4 gm/dl (3.4-5.0); BUN Creatinine Ratio 17.5 (10-20); Creatinine Clr Calc Pharmacy 31.5 ml/min; Est GFR (African American) 42.9; Potassium 4.5 mmol/L (3.5-5.1)
[2019-08-07 07:50] LABS: Albumin Globulin Ratio 0.8 (0.9-2); Bilirubin,Total 0.5 mg/dl (0.2-1); Globulin 3.1 gm/dl (2.5-4.0); Total Protein 5.5 gm/dl (6.4-8.2)
[2019-08-07 07:51] LABS: Mean Corpuscular Hgb Conc 34.6 g/dL (32-36)
[2019-08-07] MEDS: ASCORBIC ACID 500 MG TAB PO SCH (08:34)
[2019-08-07] MEDS: ZINC SULFATE 220 MG CAPSULE PO SCH (08:34)
[2019-08-07] MEDS: FAMOTIDINE 40 MG TABLET PO SCH (08:34)
[2019-08-07] MEDS: METOPROLOL SUCC 25MG EXT REL TAB PO SCH (08:34)
[2019-08-07] MEDS: OMEGA-3 (PURIFIED FISH OIL) 1 GM CAP PO SCH (11:55)
[2019-08-07] MEDS: MULTIVITAMIN TAB PO SCH (11:55)
[2019-08-07] MEDS: ASPIRIN 81 MG ECTAB PO SCH (11:55)
[2019-08-07] MEDS: CHOLECALCIFEROL 1,000 UNITS 25 MCG TAB PO SCH (11:55)
[2019-08-07 16:35] LABS: Hematocrit (blood only) 22.3 % (37-47); Hemoglobin 7.7 g/dL (12.0-16.0)
[2019-08-07] MEDS ORDERED: SODIUM CHLORIDE 0.9% 250 ML IV PRN (17:14)
[2019-08-07] MEDS ORDERED: POLYETHYLENE (MIRALAX) 17 GM PACK PO PRN (17:41)
[2019-08-07] MEDS: ATORVASTATIN 20 MG TAB PO SCH (20:35)
--- NOTE | 2019-08-07 23:16 | Hospitalist Progress Note ---
Date of Service August 07, 2019 Assessment & Plan (1) Traumatic open wound of left lower lend to fall. s/p modified suture repair in ER by ER provider. Patient appears to be orthostatic. Syncope likely caused by anemia. Hemoglobin remains low, will transfuse another unit on 08/06 Appreciate wound care. For pain relief -- tylenol prn, tramadol prn. (2) Fall: Fall appears to be secondary to snemia. In light of PAF history will place on telemetry. Check echo to r/o valvular heart disease as cause (there is an echo from [facility] scanned to chart from 2019 but very difficult to read). PT, OT evals. B12 level was normal in 2019. Patient with mild hip pain - check x-rays, r/o fracture. (3) Hyponatremia: Mildly low. (4) Hypertension: Hold lasix. Hold ARB due to KATY and low-normal BP. Cont metoprolol but reduce dose to 25mg daily. (5) Paroxysmal atrial fibrillation: Noted. Patient is in NSR upon presentation. Takes eliquis for anticoagulation and is on beta ramez. Hold eliquis given the epistaxis yesterday as well as significant bleeding leading to acute blood loss anemia. Resume when safe to do so. For now - cut dose of metoprolol as noted above. Place on tele. (6) Chronic anticoagulation: eliquis for PAF. see discussion above. (7) Acute kidney injury: Likely 2nd to dehydration and acute blood loss anemia. improved, will monitor. (8) Traumatic open wound of right lower leg: Occurred 2-3 weeks ago. Is being followed by wound care center. Consult wound care nurse. Add vit C/zinc to assist with wound healing. (9) Elevated troponin: Doubt ACS. Likely myocardial demand ischemia in setting of fall, bleeding, etc. Obtain echo to be complete. Serial enzymes: continuing to rise, will monito. (10) Acute blood loss anemia: Hemoglobin was 11.6 in 02/07. dropped to 7 will transfuse. (11) Elevated TSH: mildly elevated TSH with preserved FT4. Could consider replacement but will defer to PCP shortly after discharge. (12) DVT prophylaxis: hold eliquis for tonight (see discussion above) resume when H/H found to be stable and no evidence of any bleeding from any location daughter updated extensively over the phone. Admission and Anticipated Discharge Date Admission Date: August 05, 2019 Subjective 84 yo female reports having more energy today. She denies any new symptoms at this time. Review of Systems Gastrointestinal: no abdominal pain, no vomiting, no diarrhea/loose stools and no blood in stools Musculoskeletal: + joint pain (hips) Integumentary: + non-healing lesions Endocrine: no diabetes Hematologic / Lymphatic: + easy bruising Physical Exam Physical Exam: Constitutional: no acute distress and no altered mental status Eyes: PERRL ENMT: Ears: no TM abnormality Mouth: no longer dry oral mucous membranes Neck: trachea midline, no thyromegaly Respiratory: normal respiratory effort, lungs clear to auscultation Cardiovascular: Rate/Rhythm: regular rate and regular rhythm Heart Sounds: normal S1, normal S2 and + murmur (2/6 JAMAL RUSB and apex ) Vessels: posterior tibial pulses present and dorsalis pedis pulses present; no JVD Extremities: no edema Gastrointestinal (Abdomen): normal bowel sounds, soft, nontender, no hepatosplenomegaly Musculoskeletal: passive ROM of both hips causes pain in left hip region; no deformity of either leg; dressings in place to b/l LEs Skin: dressing noted on left leg Neurologic: moves all extremities; no focal motor deficits Psychiatric: Orientation: alert, oriented to person and oriented to place Lymphatic: no cervical lymphadenopathy Results & Data Results & Data ([facility]) Vital Signs (Past 12 Hours) Vital Signs Temp Pulse Pulse Resp BP BP BP 08/07/19 20:03 36.7 C 71 16 137/76 08/07/19 19:07 36.4 C L 58 L 19 145/77 H 08/07/19 19:03 36.6 C 72 20 151/77 H 08/07/19 18:33 36.4 C L 58 L 19 145/77 H 08/07/19 18:31 36.5 C 73 16 132/73 08/07/19 18:18 37.1 C 68 18 150/75 H 08/07/19 18:01 36.6 C 65 16 123/71 08/07/19 15:10 36.6 C 71 16 139/74 08/07/19 15:09 56 L Pulse Ox 08/07/19 20:03 93 08/07/19 19:07 94 08/07/19 19:03 95 08/07/19 18:33 94 08/07/19 18:31 93 08/07/19 18:18 98 08/07/19 18:01 96 08/07/19 15:10 96 08/07/19 15:09 PG Care Time/CCT Total # of Minutes Spent Total Time Spent with Patient: Total time spent is greater than 50% in coordination of care (as documented) at patient's floor/unit and/or counseling patient: Coding Level of Care Code 75035 Subseq Hosp Care Lvl 3 Diagnoses Traumatic open wound of left lower leg S81.802A Encounter type: initial encounter Fall W19.XXXA Encounter type: initial encounter Hyponatremia E87.1 Hypertension I10 Hypertension type: essential hypertension Paroxysmal atrial fibrillation I48.0 Chronic anticoagulation Z79.01 Acute kidney injury N17.9 Traumatic open wound of right lower leg S81.801S Encounter type: sequela Elevated troponin R79.89 Acute blood loss anemia D62 Elevated TSH R79.89 DVT prophylaxis Z29.9 Time Spent (min) 35 (1) Traumatic open wound of right lower leg Encounter type: sequela Qualified Code(s): S81.801S - Unspecified open wound, right lower leg, sequela (2) Traumatic open wound of left lower leg Encounter type: initial encounter Qualified Code(s): S81.802A - Unspecified open wound, left lower leg, initial encounter (3) Hypertension Hypertension type: essential hypertension Qualified Code(s): I10 - Essential (primary) hypertension (4) Fall Encounter type: initial encounter Qualified Code(s): W19.XXXA - Unspecified fall, initial encounter
[2019-08-08 07:59] LABS: Basophils # (auto) 0.02 K/uL (0-0.2); Basophils % (auto) 0.2 %; Eosinophils # (auto) 0.15 K/uL (0-0.5); Eosinophils % (auto) 1.8 %; Hematocrit (blood only) 27.6 % (37-47); Hemoglobin 9.5 g/dL (12.0-16.0); Immature Granulocytes # (auto) 0.02 K/uL (0.00-0.02); Immature Granulocytes % (auto) 0.2 %; Lymphocytes # (auto) 1.48 K/uL (1.2-3.4); Lymphocytes % (auto) 18.2 %; Mean Corpuscular Hemoglobin 30.6 pg (25-34); Mean Platelet Volume 9.6 fL (7.4-10.4); Monocytes # (auto) 1.01 K/uL (0.11-0.59); Monocytes % (auto) 12.4 %; Neutrophils # (auto) 5.44 K/uL (1.4-6.5); Neutrophils % (auto) 67.2 %; Platelet Count 174 K/uL (130-400); RDW Coefficient of Variation 14.4 % (11.5-14.5); RDW Standard Deviation 46.3 fL (36.4-46.3); Reticulated Hemoglobin 38.6 pg (28.2-36.6); Reticulocyte % 2.3 % (0.5-2.0); Reticulocytes # 0.07 10^6/uL (0.02-0.10); White Blood Count 8.12 K/uL (4.8-10.8)
[2019-08-08 08:02] LABS: Mean Corpuscular Hgb Conc 34.4 g/dL (32-36)
[2019-08-08] MEDS: ASCORBIC ACID 500 MG TAB PO SCH (08:19)
[2019-08-08] MEDS: FAMOTIDINE 40 MG TABLET PO SCH (08:19)
[2019-08-08] MEDS: METOPROLOL SUCC 25MG EXT REL TAB PO SCH (08:19)
[2019-08-08] MEDS: ZINC SULFATE 220 MG CAPSULE PO SCH (08:19)
[2019-08-08 08:28] LABS: BUN Creatinine Ratio 18.5 (10-20); Calcium 8.4 mg/dl (8.5-10.1); Creatinine Clr Calc Pharmacy 37.9 ml/min; Est GFR (Non-African American) 45.7; Potassium 4.2 mmol/L (3.5-5.1)
--- NOTE | 2019-08-08 08:57 | Consultation Report ---
DATE OF CONSULTATION: 08/08/2019 REASON FOR CONSULTATION: Anemia of unclear etiology. HISTORY OF PRESENT ILLNESS: Eva is a very pleasant 84-year-old female who was admitted to [facility] on 08/04 status post fall resulting in traumatic injury of her left lower extremity. The patient unfortunately does not have good recall and is uncertain how the fall happened. Denied any preceding dizziness or lightheadedness. She does recall having a significant hemorrhage and 911 was notified and responded. The patient is on Eliquis for atrial fibrillation which most likely precipitated prolonged hemorrhage. She also relates having severe epistaxis about 2 weeks prior, necessitating an ER visit to manage bleeding. According to medical records, the patient also suffers from a chronic right lower extremity leg wound and has received home health care in response. On admission, her hemoglobin was 11.9 g/dL, hematocrit 33.9. Over the past several days, her hemoglobin has precipitously dropped. She has received a transfusion of 1 unit of packed RBCs on 2 occasions without significant increase in her hemoglobin. She denies any active gastrointestinal or genitourinary bleeding. Iron studies were ordered by the hospitalist service and are within normal limits. PAST MEDICAL HISTORY: Paroxysmal atrial fibrillation, chronic anticoagulation, dyslipidemia, gastroesophageal reflux disease, hypertension, mitral regurgitation, and gait instability. PAST SURGICAL HISTORY: Status post hysterectomy. MEDICATIONS: Tramadol 50 mg p.o. daily p.r.n., metoprolol 50 mg p.o. daily, Lasix 20 mg p.o. t.i.d., losartan 50 mg p.o. daily, Pepcid 40 mg p.o. daily, multivitamin 1 tablet p.o. daily, cholecalciferol 5000 units p.o. daily, Coenzyme Q10 400 mg p.o. daily, atorvastatin 20 mg p.o. at bedtime, aspirin 81 mg p.o. daily, apixaban 5 mg p.o. b.i.d. ALLERGIES: LISINOPRIL. SOCIAL HISTORY: The patient is a . She lives independently. She has 4 grown children. She is a nonsmoker, nondrinker, non-illicit drug user. FAMILY HISTORY: Significant for heart disease on her mother's side and her father suffered from coalminer's pneumoconiosis. REVIEW OF SYSTEMS: GENERAL: The patient complains of generalized fatigue/weakness. Negative for fevers, chills or sweats. She is not anorexic or losing weight. SKIN: No rashes or lesions. No history of dermatoses. HEENT: She denies chronic headaches, lightheadedness or dizziness. No acute visual or hearing deficits. No sinus symptoms, sore throat or dysphagia. LYMPH: No history of lymphoproliferative disease. CARDIAC: Positive for paroxysmal atrial fibrillation. No current angina or palpitations. PULMONARY: Negative for COPD. She is not acutely short of breath or dyspneic on exertion. She reports no hemoptysis or cough presently. GASTROINTESTINAL: She denies any abdominal pain, nausea, vomiting, diarrhea or constipation, hematochezia or melenotic stools. GENITOURINARY: No hematuria or dysuria reported. MUSCULOSKELETAL: No focal muscle weakness. No arthralgias. ENDOCRINE: Negative for diabetes or thyroid disease. NEUROLOGIC: Negative for seizure, stroke, or migraine headache. HEMATOLOGIC: Positive for progressive normocytic normochromic anemia. PHYSICAL EXAMINATION: GENERAL: Very delightful 84-year-old female patient, lying supine in bed, awake, alert and appropriate. VITAL SIGNS: Temperature 36.7, pulse 66, respiratory rate 20, blood pressure 169/70. SKIN: Warm, dry, noncyanotic without petechia, rash or ecchymosis. HEENT: Head is atraumatic, normocephalic. Eyes PERRLA, EOMI. Nares patent without rhinorrhea or discharge. Throat clear. Tongue midline. Mucous membranes are moist. NECK: Supple without JVD or thyromegaly. HEART: Regular rate and rhythm. LUNGS: Clear to auscultation bilaterally. ABDOMEN: Soft, nontender, nondistended. EXTREMITIES: Trace peripheral edema bilateral lower extremities, right lower extremity with a sterile pressure dressing in place. NEUROLOGICAL: She is awake, alert and oriented x3. Cranial nerves are grossly intact. LABORATORY DATA: From yesterday, hemoglobin 7.7, hematocrit 21.3. IMPRESSION: Anemia, etiology unclear, suspect ongoing blood loss versus anemia of renal insufficiency. PLAN: It was my pleasure to visit with Eva this morning at bedside. The patient reports no prior history of anemia until she suffered epistaxis and more recently a fall resulting in severe laceration and acute blood loss had been doing relatively well. Her hemoglobin was 11.9 g/dL on admission and has steadily dropped despite administration of 2 units of packed RBCs. Her iron studies are adequate. We will proceed with a reticulocyte count, B12 and folate to ensure no further elemental deficiency. Again, I suspect with the 2 episodes of hemorrhage her bone marrow has been slow to respond and with a superimposed anemia of renal insufficiency that response may be delayed. Nonetheless, would continue transfusional support to maintain hemoglobin of 8 grams per deciliter and above. Agree with medical management otherwise. Clearly when she is medically stable, I would see Eva in the office and may consider initiation of erythropoietin to maintain hemoglobin of 11 grams per deciliter. Make sure gastrointestinal bleeding is ruled out. WBCs and platelets are within normal limits and thus doubt an intrinsic bone marrow disorder. Thank you very much for allowing me to participate in her care. If you have any questions or concerns, feel free to contact me at any time.
[2019-08-08] MEDS: MULTIVITAMIN TAB PO SCH (12:06)
[2019-08-08] MEDS: OMEGA-3 (PURIFIED FISH OIL) 1 GM CAP PO SCH (12:06)
[2019-08-08] MEDS: CHOLECALCIFEROL 1,000 UNITS 25 MCG TAB PO SCH (12:06)
[2019-08-08 12:21] LABS: Folate (Folic Acid) 23.26 ng/ml (>5.38)
[2019-08-08] MEDS: ACETAMINOPHEN 325 MG TAB PO PRN (15:58)
[2019-08-08] MEDS: ATORVASTATIN 20 MG TAB PO SCH (20:46)
--- NOTE | 2019-08-08 22:35 | Hospitalist Progress Note ---
Date of Service August 08, 2019 Assessment & Plan (1) Traumatic open wound of left lower lend to fall. s/p modified suture repair in ER by ER provider. Patient appears to be orthostatic secondary to anemia. Syncope likely caused by anemia. Hemoglobin has improved with transfusion. Consulted hematology: appreciate input. Appreciate wound care. For pain relief -- tylenol prn, tramadol prn. (2) Fall: Fall appears to be secondary to snemia. In light of PAF history will place on telemetry. Check echo to r/o valvular heart disease as cause (there is an echo from [facility] scanned to chart from 2019 but very difficult to read). PT, OT evals. B12 level was normal in 2019. Patient with mild hip pain - check x-rays, r/o fracture. Showed wear and tear. (3) Hyponatremia: Mildly low. (4) Hypertension: Hold lasix. Hold ARB due to KATY and low-normal BP. Cont metoprolol but reduce dose to 25mg daily. (5) Paroxysmal atrial fibrillation: Noted. Patient is in NSR upon presentation. Takes eliquis for anticoagulation and is on beta ramez. Hold eliquis given the epistaxis yesterday as well as significant bleeding leading to acute blood loss anemia. Resume when safe to do so. For now - cut dose of metoprolol as noted above. Place on tele. (6) Chronic anticoagulation: eliquis for PAF. see discussion above. (7) Acute kidney injury: Likely 2nd to dehydration and acute blood loss anemia. improved, will monitor. (8) Traumatic open wound of right lower leg: Occurred 2-3 weeks ago. Is being followed by wound care center. Consult wound care nurse. Add vit C/zinc to assist with wound healing. (9) Elevated troponin: Doubt ACS. Likely myocardial demand ischemia in setting of fall, bleeding, etc. Obtain echo to be complete. Serial enzymes: continuing to rise, will monito. (10) Acute blood loss anemia: Hemoglobin was 11.6 in 02/07. has improved and is in 9 range after transfusion. (11) Elevated TSH: mildly elevated TSH with preserved FT4. Could consider replacement but will defer to PCP shortly after discharge. (12) DVT prophylaxis: hold eliquis for tonight (see discussion above) resume when H/H found to be stable and no evidence of any bleeding from any location daughter updated extensively over the phone. Admission and Anticipated Discharge Date Admission Date: August 05, 2019 Subjective Patient reports feeling well. She states her dizziness has improved. She is not complaining of any hip pain at this time. D.W daughter and had over a 20 minute conversation with her. Daughter is concerned about disposition regarding risk of covid. Explained to daughter that PT recommended SNF placement. Patient is improving, hemoglobin stabilized, less orthostatic. Review of Systems Review of Systems: All systems reviewed & are unremarkable except as noted in HPI & below Physical Exam Physical Exam: Constitutional: no acute distress and no altered mental status Eyes: PERRL ENMT: Ears: no TM abnormality Mouth: no longer dry oral mucous membranes Neck: trachea midline, no thyromegaly Respiratory: normal respiratory effort, lungs clear to auscultation Cardiovascular: Rate/Rhythm: regular rate and regular rhythm Heart Sounds: normal S1, normal S2 and + murmur (2/6 JAMAL RUSB and apex ) Vessels: posterior tibial pulses present and dorsalis pedis pulses present; no JVD Extremities: no edema Gastrointestinal (Abdomen): normal bowel sounds, soft, nontender, no hepatosplenomegaly Musculoskeletal: passive ROM of both hips causes pain in left hip region; no deformity of either leg; dressings in place to b/l LEs Skin: dressing noted on left leg Neurologic: moves all extremities; no focal motor deficits Psychiatric: Orientation: alert, oriented to person and oriented to place Lymphatic: no cervical lymphadenopathy Results & Data Results & Data ([facility]) Vital Signs (Past 12 Hours) Vital Signs Temp Pulse Pulse Resp BP Pulse Ox 08/08/19 19:56 36.7 C 78 16 152/77 H 97 08/08/19 17:18 58 L 08/08/19 16:00 36.9 C 68 18 129/74 93 08/08/19 11:00 36.8 C 58 L 18 126/74 95 PG Care Time/CCT Total # of Minutes Spent Total Time Spent with Patient: Total time spent is greater than 50% in coordination of care (as documented) at patient's floor/unit and/or counseling patient: Coding Level of Care Code 28177 Subseq Hosp Care Lvl 3 Diagnoses Traumatic open wound of left lower leg S81.802A Encounter type: initial encounter Fall W19.XXXA Encounter type: initial encounter Hyponatremia E87.1 Hypertension I10 Hypertension type: essential hypertension Paroxysmal atrial fibrillation I48.0 Chronic anticoagulation Z79.01 Acute kidney injury N17.9 Traumatic open wound of right lower leg S81.801S Encounter type: sequela Elevated troponin R79.89 Acute blood loss anemia D62 Elevated TSH R79.89 DVT prophylaxis Z29.9 Time Spent (min) 35 (1) Traumatic open wound of right lower leg Encounter type: sequela Qualified Code(s): S81.801S - Unspecified open wound, right lower leg, sequela (2) Traumatic open wound of left lower leg Encounter type: initial encounter Qualified Code(s): S81.802A - Unspecified open wound, left lower leg, initial encounter (3) Hypertension Hypertension type: essential hypertension Qualified Code(s): I10 - Essential (primary) hypertension (4) Fall Encounter type: initial encounter Qualified Code(s): W19.XXXA - Unspecified fall, initial encounter
[2019-08-09] MEDS: ACETAMINOPHEN 325 MG TAB PO PRN ×2 (03:58→21:53)
--- NOTE | 2019-08-09 04:11 | Communication Note ---
Date of Service: August 09, 2019 Notified pt appeared to be delirious overnight but did not require intervention. 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
[2019-08-09 07:04] LABS: Basophils # (auto) 0.02 K/uL (0-0.2); Basophils % (auto) 0.3 %; Eosinophils # (auto) 0.13 K/uL (0-0.5); Eosinophils % (auto) 1.7 %; Hematocrit (blood only) 29.2 % (37-47); Hemoglobin 10.1 g/dL (12.0-16.0); Immature Granulocytes # (auto) 0.01 K/uL (0.00-0.02); Immature Granulocytes % (auto) 0.1 %; Lymphocytes # (auto) 1.64 K/uL (1.2-3.4); Lymphocytes % (auto) 21.2 %; Mean Corpuscular Hemoglobin 31.6 pg (25-34); Mean Corpuscular Hgb Conc 34.6 g/dL (32-36); Mean Corpuscular Volume 91.3 fL (80-100); Mean Platelet Volume 9.5 fL (7.4-10.4); Monocytes # (auto) 1.01 K/uL (0.11-0.59); Neutrophils # (auto) 4.93 K/uL (1.4-6.5); Neutrophils % (auto) 63.7 %; Platelet Count 198 K/uL (130-400); RDW Coefficient of Variation 14.1 % (11.5-14.5); RDW Standard Deviation 46.3 fL (36.4-46.3); White Blood Count 7.74 K/uL (4.8-10.8)
[2019-08-09 07:36] LABS: BUN Creatinine Ratio 16.1 (10-20); Calcium 8.7 mg/dl (8.5-10.1); Creatinine Clr Calc Pharmacy 36.7 ml/min; Est GFR (African American) 51.9; Est GFR (Non-African American) 44.8
[2019-08-09] MEDS: ZINC SULFATE 220 MG CAPSULE PO SCH (08:53)
[2019-08-09] MEDS: FAMOTIDINE 40 MG TABLET PO SCH (08:53)
[2019-08-09] MEDS: METOPROLOL SUCC 25MG EXT REL TAB PO SCH (08:53)
[2019-08-09] MEDS: ASCORBIC ACID 500 MG TAB PO SCH (08:53)
[2019-08-09] MEDS: APIXABAN 2.5 MG TAB PO SCH ×2 (10:47→21:53)
[2019-08-09] MEDS: CHOLECALCIFEROL 1,000 UNITS 25 MCG TAB PO SCH (12:10)
[2019-08-09] MEDS: MULTIVITAMIN TAB PO SCH (12:11)
[2019-08-09] MEDS: OMEGA-3 (PURIFIED FISH OIL) 1 GM CAP PO SCH (12:11)
[2019-08-09] MEDS: ATORVASTATIN 20 MG TAB PO SCH (21:53)
--- NOTE | 2019-08-09 22:41 | Hospitalist Progress Note ---
Date of Service August 09, 2019 Assessment & Plan (1) Traumatic open wound of left lower lend to fall. s/p modified suture repair in ER by ER provider. Patient appears to be orthostatic secondary to anemia. Syncope likely caused by anemia. Hemoglobin has improved with transfusion. Orthostasis has also improved. Consulted hematology: appreciate input. Appreciate wound care. For pain relief -- tylenol prn, tramadol prn. Patient is ready for discharge. Awaiting repeat COVID testing. (2) Fall: Fall appears to be secondary to snemia. In light of PAF history will place on telemetry. Check echo to r/o valvular heart disease as cause (there is an echo from [facility] scanned to chart from 2019 but very difficult to read). PT, OT evals. B12 level was normal in 2019. Patient with mild hip pain - check x-rays, r/o fracture. Showed wear and tear. (3) Hyponatremia: Mildly low. (4) Hypertension: Hold lasix. Hold ARB due to KATY and low-normal BP. Cont metoprolol but reduced dose to 25mg daily. (5) Paroxysmal atrial fibrillation: Noted. Patient is in NSR upon presentation. Takes eliquis for anticoagulation and is on beta ramez. Hold eliquis given the epistaxis yesterday as well as significant bleeding leading to acute blood loss anemia. Resume when safe to do so. For now - cut dose of metoprolol as noted above. Place on tele. (6) Chronic anticoagulation: eliquis for PAF. see discussion above. (7) Acute kidney injury: Likely 2nd to dehydration and acute blood loss anemia. improved, will monitor. (8) Traumatic open wound of right lower leg: Occurred 2-3 weeks ago. Is being followed by wound care center. Consult wound care nurse. Add vit C/zinc to assist with wound healing. (9) Elevated troponin: Doubt ACS. Likely myocardial demand ischemia in setting of fall, bleeding, etc. Echo complete Serial enzymes: trop peaked at .166 (10) Acute blood loss anemia: Hemoglobin was 11.6 in 02/07. has improved and is in 10.1 range after transfusion. (11) Elevated TSH: mildly elevated TSH with preserved FT4. Could consider replacement but will defer to PCP shortly after discharge. (12) DVT prophylaxis: will restart eliquis but at a lower dose given her poor GFR. Will monitor her for any bleeding. daughter updated extensively over the phone. Admission and Anticipated Discharge Date Admission Date: August 05, 2019 Subjective 84 yo female reports no new symptoms at this time. She states she feels the best she has since she has been here. Review of Systems Review of Systems: All systems reviewed & are unremarkable except as noted in HPI & below Physical Exam Physical Exam: Constitutional: no acute distress and no altered mental status Eyes: PERRL ENMT: Ears: no TM abnormality Mouth: no longer dry oral mucous membranes Neck: trachea midline, no thyromegaly Respiratory: normal respiratory effort, lungs clear to auscultation Cardiovascular: Rate/Rhythm: regular rate and regular rhythm Heart Sounds: normal S1, normal S2 and + murmur (2/6 JAMAL RUSB and apex ) Vessels: posterior tibial pulses present and dorsalis pedis pulses present; no JVD Extremities: no edema Gastrointestinal (Abdomen): normal bowel sounds, soft, nontender, no hepatosplenomegaly Musculoskeletal: passive ROM of both hips causes pain in left hip region; no deformity of either leg; dressings in place to b/l LEs Skin: dressing noted on left leg Neurologic: moves all extremities; no focal motor deficits Psychiatric: Orientation: alert, oriented to person and oriented to place Lymphatic: no cervical lymphadenopathy Results & Data Results & Data ([facility]) Vital Signs (Past 12 Hours) Vital Signs Temp Pulse Pulse Resp BP BP Pulse Ox 08/09/19 19:31 36.3 C L 81 18 144/80 H 97 08/09/19 15:26 36.7 C 77 18 123/73 99 08/09/19 15:13 77 08/09/19 11:00 36.7 C 73 18 108/69 99 PG Care Time/CCT Total # of Minutes Spent Total Time Spent with Patient: Total time spent is greater than 50% in coordination of care (as documented) at patient's floor/unit and/or counseling patient: Coding Level of Care Code 93894 Subseq Hosp Care Lvl 3 Diagnoses Traumatic open wound of left lower leg S81.802A Encounter type: initial encounter Fall W19.XXXA Encounter type: initial encounter Hyponatremia E87.1 Hypertension I10 Hypertension type: essential hypertension Paroxysmal atrial fibrillation I48.0 Chronic anticoagulation Z79.01 Acute kidney injury N17.9 Traumatic open wound of right lower leg S81.801S Encounter type: sequela Elevated troponin R79.89 Acute blood loss anemia D62 Elevated TSH R79.89 DVT prophylaxis Z29.9 Time Spent (min) 35 (1) Traumatic open wound of right lower leg Encounter type: sequela Qualified Code(s): S81.801S - Unspecified open wound, right lower leg, sequela (2) Traumatic open wound of left lower leg Encounter type: initial encounter Qualified Code(s): S81.802A - Unspecified open wound, left lower leg, initial encounter (3) Hypertension Hypertension type: essential hypertension Qualified Code(s): I10 - Essential (primary) hypertension (4) Fall Encounter type: initial encounter Qualified Code(s): W19.XXXA - Unspecified fall, initial encounter
[2019-08-10] MEDS: TRAMADOL HCL 50 MG TABLET PO PRN ×2 (03:41→20:22)
[2019-08-10] MEDS: ACETAMINOPHEN 325 MG TAB PO PRN ×2 (04:31→09:18)
[2019-08-10] MEDS: FAMOTIDINE 40 MG TABLET PO SCH (09:19)
[2019-08-10] MEDS: ASCORBIC ACID 500 MG TAB PO SCH (09:19)
[2019-08-10] MEDS: ZINC SULFATE 220 MG CAPSULE PO SCH (09:19)
[2019-08-10] MEDS: APIXABAN 2.5 MG TAB PO SCH ×2 (09:19→20:23)
[2019-08-10] MEDS: METOPROLOL SUCC 25MG EXT REL TAB PO SCH (09:19)
[2019-08-10] MEDS: CHOLECALCIFEROL 1,000 UNITS 25 MCG TAB PO SCH (11:36)
[2019-08-10] MEDS: OMEGA-3 (PURIFIED FISH OIL) 1 GM CAP PO SCH (11:36)
[2019-08-10] MEDS: MULTIVITAMIN TAB PO SCH (11:36)
[2019-08-10 17:25] LABS: Hematocrit (blood only) 31.1 % (37-47); Hemoglobin 10.3 g/dL (12.0-16.0)
[2019-08-10] MEDS: ATORVASTATIN 20 MG TAB PO SCH (20:22)
--- NOTE | 2019-08-10 22:56 | Hospitalist Progress Note ---
Date of Service August 10, 2019 Assessment & Plan (1) Traumatic open wound of left lower lend to fall. s/p modified suture repair in ER by ER provider. Patient appears to be orthostatic secondary to anemia. Syncope likely caused by anemia. Hemoglobin has improved with transfusion. Orthostasis has also improved. Consulted hematology: appreciate input. Appreciate wound care. For pain relief -- tylenol prn, tramadol prn. Patient is ready for discharge. Awaiting repeat COVID testing. (2) Fall: Fall appears to be secondary to snemia. In light of PAF history will place on telemetry. Check echo to r/o valvular heart disease as cause (there is an echo from [facility] scanned to chart from 2019 but very difficult to read). PT, OT evals. B12 level was normal in 2019. Patient with mild hip pain - check x-rays, r/o fracture. Showed wear and tear. Patient refused eval by ortho as she reports she is 84 and the pain has improved. Does not want to seek a possble injection. (3) Hyponatremia: Mildly low. (4) Hypertension: Hold lasix. Hold ARB due to KATY and low-normal BP. Cont metoprolol but reduced dose to 25mg daily. (5) Paroxysmal atrial fibrillation: Noted. Patient is in NSR upon presentation. Takes eliquis for anticoagulation and is on beta ramez. resumed eliquis but at a lower dose as stated above. For now - cut dose of metoprolol as noted above. Place on tele. (6) Chronic anticoagulation: eliquis for PAF. see discussion above. (7) Acute kidney injury: Likely 2nd to dehydration and acute blood loss anemia. improved, will monitor. (8) Traumatic open wound of right lower leg: Occurred 2-3 weeks ago. Is being followed by wound care center. Consult wound care nurse. Add vit C/zinc to assist with wound healing. (9) Elevated troponin: Doubt ACS. Likely myocardial demand ischemia in setting of fall, bleeding, etc. Echo complete Serial enzymes: trop peaked at .166 (10) Acute blood loss anemia: Hemoglobin was 11.6 in 02/07. has improved and is in 10.3 . (11) Elevated TSH: mildly elevated TSH with preserved FT4. Could consider replacement but will defer to PCP shortly after discharge. (12) DVT prophylaxis: will restart eliquis but at a lower dose given her poor GFR. Will monitor her for any bleeding. daughter updated extensively over the phone. Admission and Anticipated Discharge Date Admission Date: August 05, 2019 Subjective 84 yo female reports feeling well. She has no new complaints. Review of Systems Review of Systems: All systems reviewed & are unremarkable except as noted in HPI & below Physical Exam Physical Exam: Constitutional: no acute distress and no altered mental status Eyes: PERRL ENMT: Ears: no TM abnormality Mouth: no longer dry oral mucous membranes Neck: trachea midline, no thyromegaly Respiratory: normal respiratory effort, lungs clear to auscultation Cardiovascular: Rate/Rhythm: regular rate and regular rhythm Heart Sounds: normal S1, normal S2 and + murmur (2/6 JAMAL RUSB and apex ) Vessels: posterior tibial pulses present and dorsalis pedis pulses present; no JVD Extremities: no edema Gastrointestinal (Abdomen): normal bowel sounds, soft, nontender, no hepatosplenomegaly Musculoskeletal: passive ROM of left hip causes pain in left hip (now); no deformity of either leg; Skin: dressing noted on left leg Neurologic: moves all extremities; no focal motor deficits Psychiatric: Orientation: alert, oriented to person and oriented to place Lymphatic: no cervical lymphadenopathy Results & Data Results & Data ([facility]) Vital Signs (Past 12 Hours) Vital Signs Temp Pulse Pulse Resp BP Pulse Ox 08/10/19 20:03 36.5 C 84 18 134/78 96 08/10/19 14:20 78 08/10/19 11:28 36.5 C 72 18 108/59 L 97 PG Care Time/CCT Total # of Minutes Spent Total Time Spent with Patient: Total time spent is greater than 50% in coordination of care (as documented) at patient's floor/unit and/or counseling patient: Coding Level of Care Code 05045 Subseq Hosp Care Lvl 3 Diagnoses Traumatic open wound of left lower leg S81.802A Encounter type: initial encounter Fall W19.XXXA Encounter type: initial encounter Hyponatremia E87.1 Hypertension I10 Hypertension type: essential hypertension Paroxysmal atrial fibrillation I48.0 Chronic anticoagulation Z79.01 Acute kidney injury N17.9 Traumatic open wound of right lower leg S81.801S Encounter type: sequela Elevated troponin R79.89 Acute blood loss anemia D62 Elevated TSH R79.89 DVT prophylaxis Z29.9 (1) Traumatic open wound of right lower leg Encounter type: sequela Qualified Code(s): S81.801S - Unspecified open wound, right lower leg, sequela (2) Traumatic open wound of left lower leg Encounter type: initial encounter Qualified Code(s): S81.802A - Unspecified open wound, left lower leg, initial encounter (3) Hypertension Hypertension type: essential hypertension Qualified Code(s): I10 - Essential (primary) hypertension (4) Fall Encounter type: initial encounter Qualified Code(s): W19.XXXA - Unspecified fall, initial encounter
[2019-08-11] MEDS: METOPROLOL SUCC 25MG EXT REL TAB PO SCH (08:05)
[2019-08-11] MEDS: FAMOTIDINE 40 MG TABLET PO SCH (08:05)
[2019-08-11] MEDS: APIXABAN 2.5 MG TAB PO SCH (08:05)
[2019-08-11] MEDS: ASCORBIC ACID 500 MG TAB PO SCH (08:05)
[2019-08-11] MEDS: ZINC SULFATE 220 MG CAPSULE PO SCH (08:05)
[2019-08-11] MEDS: ACETAMINOPHEN 325 MG TAB PO PRN (10:00)
[2019-08-11 10:26] LABS: Hematocrit (blood only) 30.6 % (37-47); Hemoglobin 10.1 g/dL (12.0-16.0); Mean Corpuscular Hemoglobin 30.7 pg (25-34); Mean Platelet Volume 9.4 fL (7.4-10.4); Platelet Count 245 K/uL (130-400); RDW Coefficient of Variation 14.3 % (11.5-14.5); RDW Standard Deviation 48.3 fL (36.4-46.3); Red Blood Count 3.29 M/uL (4.2-5.4); White Blood Count 8.44 K/uL (4.8-10.8)
[2019-08-11 10:55] LABS: Albumin Level 2.6 gm/dl (3.4-5.0); BUN Creatinine Ratio 15.1 (10-20); Calcium 8.7 mg/dl (8.5-10.1); Creatinine Clr Calc Pharmacy 33.6 ml/min; Est GFR (African American) 46.3; Potassium 4.1 mmol/L (3.5-5.1)
[2019-08-11 10:58] LABS: Albumin Globulin Ratio 0.7 (0.9-2); Bilirubin,Total 0.6 mg/dl (0.2-1); Globulin 3.7 gm/dl (2.5-4.0); Total Protein 6.3 gm/dl (6.4-8.2)
[2019-08-11] MEDS: OMEGA-3 (PURIFIED FISH OIL) 1 GM CAP PO SCH (11:39)
[2019-08-11] MEDS: CHOLECALCIFEROL 1,000 UNITS 25 MCG TAB PO SCH (11:39)
[2019-08-11] MEDS: MULTIVITAMIN TAB PO SCH (11:40)
--- NOTE | 2019-08-18 12:36 | Discharge Summary ---
Date of Service August 11, 2019 Admission HPI Per Admitting Provider 84yo female with h/o a.fib on fabian who presents after a fall at her home in [place]. The patient's daughter was at bedside during my ER assessment and provided much of the historical information. Patient herself does not remember the fall. She couldn't give details surrounding the fall. The patient's daughter states they found her about 745am today in her bathroom. The family thinks she may have fallen about 2am. Family found blood on the floor in the kitchen as well as on her chair in the living room. Thus, they aren't certain where the actual fall occurred. There was a large wound to the left leg from this injury. Daughter reports that Mrs Engel was evaluated in the ER last night because of epistaxis. The nosebleed stopped without intervention. They did not get home until midnight last evening. Daughter mentioned that on most mornings her mom feels "foggy." Receives home health for a leg wound on the right leg. That has been present for 2 weeks. Daughter believes it was from scratching the skin. Followed in wound center for this right leg wound Over the last few days she has felt well except for the nosebleed. No loss of taste/smell, no fevers, no cough or dyspnea, no abdominal pain/nausea/emesis/diarrhea. No dysuria or foul-smelling urine. Principal Diagnosis Symptomatic Anemia Discharge Exam Constitutional: no acute distress and no altered mental status Eyes: PERRL ENMT: Ears: no TM abnormality Mouth: no longer dry oral mucous membranes Neck: trachea midline, no thyromegaly Respiratory: normal respiratory effort, lungs clear to auscultation Cardiovascular: Rate/Rhythm: regular rate and regular rhythm Heart Sounds: normal S1, normal S2 and + murmur (2/6 JAMAL RUSB and apex ) Vessels: posterior tibial pulses present and dorsalis pedis pulses present; no JVD Extremities: no edema Gastrointestinal (Abdomen): normal bowel sounds, soft, nontender, no hepatosplenomegaly Musculoskeletal: passive ROM of left hip causes pain in left hip (now); no deformity of either leg; Skin: dressing noted on left leg Neurologic: moves all extremities; no focal motor deficits Psychiatric: Orientation: alert, oriented to person and oriented to place Lymphatic: no cervical lymphadenopathy Discharge Data Allergies Allergy/AdvReac Type Severity Reaction Status Date / Time lisinopril AdvReac Mild Cough Verified 08/13/19 10:50 Consultations 08/05/19 12:07 ED Decision to Admit Stat 08/07/19 17:12 Consult Hematology Routine Ordered Studies 08/05/19 10:01 CT head/brain wo con Stat Hospital Course (1) Traumatic open wound of left lower lend to fall. s/p modified suture repair in ER by ER provider. Patient appeared to have been orthostatic secondary to anemia. Syncope was also likely caused by anemia. Hemoglobin has improved with transfusion of 2 PRBC. Orthostasis has also improved. Consulted hematology: appreciate input. Appreciate wound care. For pain relief -- tylenol prn, tramadol prn. Patient is ready for discharge. COVID test negative. (2) Fall: Fall appears to be secondary to snemia. In light of PAF history will place on telemetry. Check echo to r/o valvular heart disease as cause (there is an echo from [facility] scanned to chart from 2019 but very difficult to read). PT, OT evals. B12 level was normal in 2019. Patient with mild hip pain - check x-rays, r/o fracture. Showed wear and tear. Patient refused eval by ortho as she reports she is 84 and the pain has improved. Does not want to seek a possble injection. (3) Hyponatremia: Mildly low. (4) Hypertension: Hold lasix. Hold ARB due to KATY and low-normal BP. Cont metoprolol but reduced dose to 25mg daily. (5) Paroxysmal atrial fibrillation: Noted. Patient is in NSR upon presentation. Takes eliquis for anticoagulation and is on beta ramez. resumed eliquis but at a lower dose as stated above. Risk of clotting outweights bleeding risk. Will defer to PCP if she needs to increase her Eliquis to 5mg PO BID. She is tolerating her lower dose and her GFR is elevated and advanced age, she may benefit from a lower dose of 2.5mg pO BID. For now - cut dose of metoprolol as noted above. Place on tele. (6) Chronic anticoagulation: eliquis for PAF. see discussion above. (7) Acute kidney injury: Likely 2nd to dehydration and acute blood loss anemia. improved, will monitor. (8) Traumatic open wound of right lower leg: Occurred 2-3 weeks ago. Is being followed by wound care center. Consult wound care nurse. Add vit C/zinc to assist with wound healing. (9) Elevated troponin: Doubt ACS. Likely myocardial demand ischemia in setting of fall, bleeding, etc. Echo complete Serial enzymes: trop peaked at .166 (10) Acute blood loss anemia: Hemoglobin was 11.6 in 02/07. has improved and is in 10.3 . (11) Elevated TSH: mildly elevated TSH with preserved FT4. Could consider replacement but will defer to PCP shortly after discharge. (12) DVT prophylaxis: will restart eliquis but at a lower dose given her poor GFR. daughter updated extensively over the phone. Total Time Total Time Spent Total Time Spent (In Minutes): 32 Total Time Includes: Examination of the Patient, Discharge Planning and Medication Reconciliation Discharge Plan Discharge Items Patient Disposition: Transfer Inpatient Rehab Fac Reason For Visit: FALL, HYPONATREMIA Discharge Diagnosis: hypotension from anemia. Activity: Resume your previous activity Non-emergency contact: Primary Care Provider Call non-emergency contact if: you have any medication questions Follow-up/Referrals: Napoleon Lindsey MD [Primary Care Provider] - Diet: Heart Healthy Addtl Attending Provider Instructions: You have been hospitalized for an acute medical problem. During your stay at [facility], we have made an effort to correct the problem that brought you to the hospital while keeping you as comfortable as possible. Medications were used to bring your condition under control and your discharge instructions will include directions for any medications you should take after leaving the hospital. Please make sure you see your Primary Care Provider as part of your follow up plan. F/U with PCP in 1-2 weeks Pending Studies at Discharge: No Stand-Alone Forms: My [facility] Skilled Items Patient informed of condition?: Yes (DNR/DNI) DNR: Yes Discharge Level of Care: Acute rehab Communicable Disease: No Discharge Prognosis: Stable Lines: None Urinary Catheter: No Medications and DC Order Prescriptions: New Eliquis 2.5 mg Tablet 2.5 mg PO BID Qty: 30 RF: 0 metoprolol succinate 25 mg Tablet Extended Release 24 Hr 25 mg PO QAM Qty: 30 RF: 0 acetaminophen 325 mg Tablet 650 mg PO Q4H PRN (Reason: pain) Qty: 30 RF: 0 ascorbic acid (vitamin C) [Vitamin C] 500 mg Tablet 500 mg PO QAM Qty: 30 RF: 0 Continued (DME) Wheelchair (Manual) Device See Rx Instructions .ROUTE .MEDSUPPLY Qty: 1 RF: 0 (DME) Wheelchair (Manual) Device See Rx Instructions .ROUTE .MEDSUPPLY Qty: 1 RF: 0 atorvastatin 20 mg tablet 20 mg PO HS RF: 0 multivitamin [Daily Multi-Vitamin] Tablet 1 tab PO DAILY@1200 RF: 0 cholecalciferol (vitamin D3) 125 mcg (5,000 unit) capsule 5,000 units PO DAILY@1200 RF: 0 coenzyme Q10 400 mg capsule 400 mg PO DAILY@1200 RF: 0 (DME) Manual Wheelchair Device See Rx Instructions .ROUTE .MEDSUPPLY Qty: 1 RF: 0 famotidine [Pepcid] 40 mg tablet 40 mg PO QAM RF: 0 tramadol 50 mg tablet 50 mg PO DAILY PRN (Reason: Pain) RF: 0 furosemide [Lasix] 20 mg Tablet 20 mg PO TID PRN (Reason: Edema) RF: 0 omega-3 fatty acids [Fish Oil Concentrate] 1,000 mg Capsule 2,000 mg PO DAILY@1200 RF: 0 Discontinued Eliquis 5 mg tablet 5 mg PO BID RF: 0 aspirin 81 mg tablet,delayed release (DR/EC) 81 mg PO DAILY@1200 RF: 0 losartan 50 mg tablet 50 mg PO HS RF: 0 metoprolol succinate 50 mg capsule,sprinkle,ER 24hr 50 mg PO QAM RF: 0 Discharge Orders: Discharge Order (Routine); Ordered 08/11/19 Ordered By: Nato Betancur Admission Data Admit Date/Time: 08/05/19 12:33 Attending Provider: Nato Betancur Admit Provider: Meliton Perez Primary Care Provider: Napoleon Lindsey Other Providers: Meliton Perez ; [facility],Home Healthcare ; [facility] ; [facility]Health Other Interventions: Discharge Summary Assessment (RN) Last Done: 08/11/19 13:35 DC Date/Time DO NOT enter until pt leaves facility: 08/11/19 14:00 Coding Level of Care Code D/C Day Management >30 mins Diagnoses Traumatic open wound of left lower leg S81.802A Encounter type: initial encounter Fall W19.XXXA Encounter type: initial encounter Hyponatremia E87.1 Hypertension I10 Hypertension type: essential hypertension Paroxysmal atrial fibrillation I48.0 Chronic anticoagulation Z79.01 Acute kidney injury N17.9 Traumatic open wound of right lower leg S81.801S Encounter type: sequela Elevated troponin R79.89 Acute blood loss anemia D62 Elevated TSH R79.89 DVT prophylaxis Z29.9
== END 2019-08-11 14:00 | DRG 683 ==
LOC: ED 08:47 → SUATTDRO 12:33 → 2N 12:33